=== PATIENT | male | born 1945 | race Caucasian/White ===

== ENCOUNTER → 2018-03-05 | Outpatient (CLI) | payer OTHER | LOC: BHFA 09:00 | PROVIDERS: ATTEND Internal Medicine Cardiovascular Disease | DX: R07.9 Chest pain, unspecified (principal); I25.10 Atherosclerotic heart disease of native coronary artery without angina pectoris | CPT/HCPCS: 78452; 93017; A9500 ==

== ENCOUNTER → 2018-03-27 | Outpatient (CLI) | payer OTHER | LOC: BHCLAF 14:45 | PROVIDERS: ATTEND Internal Medicine Cardiovascular Disease | DX: I25.10 Atherosclerotic heart disease of native coronary artery without angina pectoris (principal); R06.00 Dyspnea, unspecified | CPT/HCPCS: 93306-PO ==

== ENCOUNTER → 2018-03-30 | Day surgery (SDC) | payer OTHER ==
[~2018-03-30] MED LIST: ASPIRIN EC 325 MG TAB PO ONE; ATROPINE SULFATE 1 MG/10 ML SYR IVP PRN; DIAZEPAM 5 MG TAB ONE; DIAZEPAM 5 MG TAB PO ONE; FAMOTIDINE 20 MG TAB ONE; FAMOTIDINE 20 MG TAB PO ONE; HYDROCODONE/APAP 5/325 TAB PO PRN; IOPAMIDOL (ISOVUE-370) 150 ML BTL IV ONE; LIDOCAINE 1% 300 MG/30 ML SDV ONE; MIDAZOLAM 2 MG/2 ML VIAL ONE; NITROGLYCERIN 0.4 MG BTL SL PRN; NS 1,000 ML IV ONE; ONDANSETRON 4 MG/2 ML VIAL IVP PRN; OXYCODONE/APAP 5/325 TAB ONE; OXYCODONE/APAP 5/325 TAB PO PRN; diphenhydrAMINE 25 MG CAP PO ONE; fentaNYL 100 MCG/2 ML INJ ONE
[2018-03-30 06:58] LABS: PLATELET COUNT 115 10^3/uL (150-400)
[2018-03-30 07:05] LABS: INR 0.99 (0.83-1.16); PROTIME(PATIENT) 13.3 SEC (12.0-15.0)
--- NOTE | 2018-03-30 07:06 | PDHPUP ---
History & Physical Update H&P update statement: This history and physical update is based on an assessment of the patient which was completed after admission or registration (within 24 hours), but prior to the surgery/procedure. H&P update: H&P reviewed & patient examined, no change in patient's condition since H&P completed
--- NOTE | 2018-03-30 07:06 | PDPROPOC ---
Sedation Plan of Care Sedation Plan of Care: mental status noted, patient educated of risks, benefits , alternatives, patient can tolerate sedation ASA Classification: ASA 2 Planned drugs: fentanyl, midazolam Mallampati Score: Class 2 Mallampati Reference Image: Patient passed 3-3-2 rule?: Yes
--- NOTE | 2018-03-30 08:47 | CPIP ---
DATE OF PROCEDURE: 03/30/2018 INDICATION FOR PROCEDURE: Shortness of breath, positive stress test, and history of coronary artery disease. PROCEDURE: 1. Nonselective right groin sheathogram. 2. 7-Fijian sheath in the right common femoral vein. 3. Bilateral coronary angiography. 4. Left heart catheterization. 5. Left ventriculogram. 6. Right heart catheterization with Kapaa-Oskar catheter. HISTORY: Briefly, this is a 72-year-old male with history of worsening dyspnea on exertion as an out patient. The patient had a stress test, which showed positive inferolateral defect, which was new co mpared to prior stress test. Of note, the patient did have a catheterization 7 years ago, which show ed LAD and diagonal artery disease. Given the patient's symptoms, prior history of coronary artery d isease, as well as stress test, we decided to move forward with right and left heart catheterization. DESCRIPTION OF PROCEDURE: After informed consent was obtained, the patient was the [facility] to [facility] the right groin was prepped and draped in a sterile fashion. Using lidocaine, insertion of a 6-F rench sheath to the right femoral artery verified angiographically. A 7-Fijian sheath in right commo n vein. Through the 7-Fijian sheath, a Kapaa-Oskar catheter was advanced. Wedge pressure mean was 10, A-wave 1 4, V-wave 11. PA pressure was systolic of 27, diastolic 16, mean is 21. RV pressure systolic 36, di astolic 5, end of 10. RA pressure mean of 7, A-wave of 12, V-wave 10. Cardiac output was measured t o be 8.4 by Berry with a cardiac index of 3.6. AO sat 94%. PA sat 79%. Kapaa-Oskar catheter was then removed. A JL4 catheter was then advanced to the left coronary artery. Images of the left coronary artery revealed normal left main. Left circumflex artery gave off a larg e marginal 1 proximally, terminated to what appeared to be a codominant circulation with the __ and marginal 2 artery, which were healthy and free of disease. The LAD was a long vessel, which w rapped around the apex. There was a takeoff of a small to medium diagonal artery in its mid body, wh ich had ostial 40% to 50%. The LAD, itself, had mild disease, but with no significant impingement. After these images were obtained, the JL4 guide was removed. A JR4 guide was advanced to the right coronary artery. Images of the right coronary artery recorded artery revealed a codominant right coronary artery with normal RPDA. After these were images obtaine d, the JR4 catheter was removed. Pigtail catheter was advanced to left ventricle. LVEDP is 12 mmHg. Left ventriculogram in the HILL p rojection showed an EF of approximately 65% with no wall motion abnormalities. The pigtail catheter was removed over the 0.035 wire. No pullback gradient between the LV and the aorta. Right groin was closed with 6-Fijian Angio-Seal. Seven-Fijian sheath was closed with manual pressure. Patient kyung rated the procedure well with no complications. IMPRESSION: 1. Noncritical coronary artery disease mainly in the form of ostial diagonal 1 disease with mild mid left anterior disease. Of note, compared to the patient's last catheterization 7 years ago, the gareth nosis in the left anterior descending and diagonal artery have not progressed. 2. Normal codominant left circumflex artery and right coronary artery. 3. Normal ejection fraction. 4. Normal pulmonic pressures. PLAN: At this time, the stress test appears to be a false positive. Patient has no significant ingram ges in his coronary anatomy compared to his prior catheterization 6 years ago. We will continue with medical therapy. If the patient's dyspnea does progress, would consider pulmonary evaluation, asuncion henry pulmonic pressures were within normal limits. /[id number]/MODL
--- NOTE | 2018-03-30 16:37 | CPEKG ---
Test Reason : OPEN Blood Pressure : / mmHG Vent. Rate : 069 BPM Atrial Rate : 068 BPM P-R Int : 157 ms QRS Dur : 090 ms QT Int : 408 ms P-R-T Axes : 066 004 076 degrees QTc Int : 437 ms Sinus rhythm Atrial premature complexes Confirmed by Chapito Styles ([id number]) on 03/30/2018 4:36:58 PM Referred By: Confirmed By:Chapito Styles
== END | disposition home or self-care (01) ==
LOC: FCATH 05:59
PROVIDERS: ATTEND Internal Medicine Cardiovascular Disease
DX: I25.10 Atherosclerotic heart disease of native coronary artery without angina pectoris (principal); R06.00 Dyspnea, unspecified; R94.39 Abnormal result of other cardiovascular function study; I10 Essential (primary) hypertension; E11.9 Type 2 diabetes mellitus without complications; Z79.84 Long term (current) use of oral hypoglycemic drugs
CPT/HCPCS: C1760; J1644; J2250; J2270; J3010; Q9967